=== PATIENT | female | born 1995 | race Two or more races ===

== ENCOUNTER 2023-07-26 19:50 | Emergency (ER) | payer OTHER ==
[~2023-07-26] VITALS: Ht 162.6 cm; Wt 59.0 kg
[2023-07-26] MEDS ORDERED: IBUPROFEN 600 MG TABLET ONE (22:41)
[2023-07-26] MEDS ORDERED: CYCLOBENZAPRINE 10 MG TABLET ONE (22:41)
[2023-07-26] MEDS ORDERED: CYCL5TAB PO (22:43)
[2023-07-26 22:48] VITALS: BP 122/70; TEMP 97.9; O2SAT 99
[2023-07-26] MEDS ORDERED: IBUPROFEN 600 MG TABLET PO ONE (23:00)
[2023-07-26] MEDS ORDERED: CYCLOBENZAPRINE 10 MG TABLET PO ONE (23:00)
== END 2023-07-26 22:49 | disposition home or self-care (01) ==
LOC: ER 20:31
DX: M54.9 Dorsalgia, unspecified (principal); Z88.1 Allergy status to other antibiotic agents